=== PATIENT | female | born 1990 | race American Indian/Alaskan Native ===

== ENCOUNTER 2016-06-26 08:50 | Emergency (ER) | payer SELFPAY ==
[2016-06-26 09:01] VITALS: BP 112/78
[2016-06-26 10:39] LABS: Bilirubin,Urine NEG (Negative); Blood,Urine LG (Negative); Ketones,Urine 20 mg/dL (Negative); Leukocyte Esterase,Urine MOD (Negative); Mucus,Urine 3+ /HPF; Nitrite,Urine NEG (Negative)
[2016-06-26 10:41] LABS: RBC,Urine > 182.0 /HPF (0.0-6.0)
[2016-06-26] MEDS ORDERED: ZITHROMAX PO ONE (10:56)
[2016-06-26] MEDS ORDERED: XYLOCAINE 1% MPF 5 mL INFILTRATI ONE (10:56)
[2016-06-26] MEDS ORDERED: ROCEPHIN IM ONE (10:56)
--- NOTE | 2016-06-26 11:02 | Emergency Department Report ---
ED Female HPI - General Chief complaint: Sore Throat Stated complaint: VAGINAL IRRIATION/SORE THROAT Time Seen by Provider: 06/26/16 10:09 Source: patient Mode of arrival: Ambulatory Limitations: No Limitations - History of Present Illness Initial comments: 25-year-old female past medical history none presents with complaint of 5 days of sore throat and vaginal discharge. Patient states vaginal discharge was yellowish-white. Patient states she also has sore throat. Denies any fever or chills. States she has some mild external vaginal irritation as well. Denies any history of STDs MD Complaint: dysuria Onset/Timin -: days(s) Location: labia Severity: moderate Severity scale (0 -10): 5 Quality: burning Consistency: constant Improves with: none Worsens with: none Associated Symptoms: vaginal discharge - Related Data Sexually active: Yes Previous Rx's Medication Instructions Recorded Last Taken Type Ibuprofen [Motrin] 600 mg PO Q8H PRN #30 tablet 06/26/16 Unknown Rx Nitrofurantoin [place]/M-Cryst 100 mg PO Q12HR #14 capsule 06/26/16 Unknown Rx [Macrobid CAP] Allergies Allergy/AdvReac Type Severity Reaction Status Date / Time No Known Allergies Allergy Unverified 12/27/15 12:59 ED Review of Systems ROS: Stated complaint: VAGINAL IRRIATION/SORE THROAT Other details as noted in HPI Constitutional: denies: chills, fever Eyes: denies: eye pain, eye discharge, vision change ENT: throat pain. denies: ear pain Respiratory: denies: cough, shortness of breath, wheezing Cardiovascular: denies: chest pain, palpitations Endocrine: no symptoms reported Gastrointestinal: denies: abdominal pain, nausea, diarrhea Genitourinary: dysuria, discharge, other. denies: urgency Musculoskeletal: denies: back pain, joint swelling, arthralgia Skin: denies: rash, lesions Neurological: denies: headache, weakness, paresthesias Psychiatric: denies: anxiety, depression Hematological/Lymphatic: denies: easy bleeding, easy bruising ED Past Medical Hx - Past Medical History Hx Hypertension: No Hx Diabetes: No Hx Deep Vein Thrombosis: No Hx Renal Disease: No Hx Sickle Cell Disease: No Hx Seizures: No Hx Asthma: No Hx HIV: No - Surgical History Additional Surgical History: Spinal Surgery, - Social History Smoking Status: Current Every Day Smoker Substance Use Type: None - Medications Home Medications: Home Medications Medication Instructions Recorded Confirmed Last Taken Type Ibuprofen [Motrin] 600 mg PO Q8H PRN #30 tablet 06/26/16 Unknown Rx Nitrofurantoin [place]/M-Cryst 100 mg PO Q12HR #14 capsule 06/26/16 Unknown Rx [Macrobid CAP] ED Physical Exam - General Limitations: No Limitations General appearance: alert, in no apparent distress - Head Head exam: Present: atraumatic, normocephalic - Eye Eye exam: Present: normal appearance, PERRL, EOMI - ENT ENT exam: Present: mucous membranes moist - Expanded ENT Exam Expanded Ear exam: Present: auricular hematoma Throat exam: Positive: tonsillar exudate, other (patient has whitish yellowish tonsillar exudates) - Neck Neck exam: Present: normal inspection - Respiratory Respiratory exam: Present: normal lung sounds bilaterally. Absent: respiratory distress - Cardiovascular Cardiovascular Exam: Present: regular rate, normal rhythm. Absent: systolic murmur, diastolic murmur, rubs, gallop - GI/Abdominal GI/Abdominal exam: Present: soft, normal bowel sounds - External exam: Present: normal external exam Speculum exam: Present: vaginal discharge, vaginal bleeding Bi-manual exam: Present: normal bi-manual exam - Extremities Exam Extremities exam: Present: normal inspection, full ROM - Back Exam Back exam: Present: normal inspection - Neurological Exam Neurological exam: Present: alert, oriented X3 - Psychiatric Psychiatric exam: Present: normal affect, normal mood - Skin Skin exam: Present: warm, dry, intact, normal color. Absent: rash ED Course Vital Signs 06/26/16 08:57 Temperature 98.8 F Pulse Rate 106 H Respiratory 18 Rate Blood Pressure 112/78 O2 Sat by Pulse 98 Oximetry ED Medical Decision Making - Medical Decision Making A/P: Pharyngitis, vaginal discharge 1-this patient complained of vaginal discharge with associated pharyngitis and may have multiple sexual partners I decided to empirically cover this patient for chlamydia and gonorrhea. Urine chlamydia and gonorrhea culture sent. Wet prep negative and strep test negative. will use CDC guidelines for Tx: https:// www.cdc.gov/std/so0031/gonorrhea.htm 2-patient has large amount of WBCs in urine will cover empirically for UTI as well 3-all primary care doctor in [employer] 4-Motrin PRN for discomfort Critical care attestation.: If time is entered above; I have spent that time in minutes in the direct care of this critically ill patient, excluding procedure time. ED Disposition Clinical Impression: Vaginal discharge Pharyngitis Qualifiers: Pharyngitis/tonsillitis etiology: unspecified etiology Qualified Code(s): J02.9 - Acute pharyngitis, unspecified Disposition: DISCHARGED TO HOME OR SELFCARE Is pt being admited?: No Does the pt Need Aspirin: No Condition: Stable Instructions: Urinary Tract Infection in Women (ED), Pharyngitis (ED) Prescriptions: Ibuprofen [Motrin] 600 mg PO Q8H PRN #30 tablet PRN Reason: Pain Nitrofurantoin [place]/M-Cryst [Macrobid CAP] 100 mg PO Q12HR #14 capsule Referrals: PRIMARY CAREMD [Primary Care Provider] - 3-5 Days CECE WOMACK MD [Staff Physician] - 3-5 Days [facility] [Provider Group] - 3-5 Days Forms: Work/School Release Form(ED) Time of Disposition: 11:03
== END 2016-06-26 11:17 | disposition home or self-care (01) ==
LOC: ED 08:50
DX: N89.8 Other specified noninflammatory disorders of vagina (principal); J02.9 Acute pharyngitis, unspecified; F17.200 Nicotine dependence, unspecified, uncomplicated
CPT/HCPCS: 81001; 81025; 87086; 87116; 87210; 87430; 87591; 96372; 99284; J0696